=== PATIENT | male | born 1990 | race African-American/Black ===

== ENCOUNTER 2020-04-23 08:21 | Outpatient (REF) | payer OTHER, SELFPAY ==
--- NOTE | 2020-04-23 08:35 | XR_ITS ---
EXAMINATION: XR LUMBOSACRAL SPINE CLINICAL INFORMATION: Low back pain COMPARISON: None TECHNIQUE: Three views of the lumbosacral spine. FINDINGS: The vertebral bodies and posterior elements are normal. The disc spaces are preserved and the vertebral alignment is normal. The paraspinal soft tissues are normal. XR/XR lumbar spine 2-3V IMPRESSION: Unremarkable examination.
== END 2020-04-23 08:22 | disposition home or self-care (01) ==
LOC: HO.HMGCX 08:21
PROVIDERS: PCP Nurse Practitioner Family; Visit Provider Nurse Practitioner Family
DX: M54.5 Low back pain (principal)
CPT/HCPCS: 72100

== ENCOUNTER 2020-08-17 11:00 | Outpatient (RCR) | payer OTHER, SELFPAY ==
--- NOTE | 2020-05-26 12:12 | MHC.PT.EP ---
[facility] [place] Office [place] Office [place] Office [address] Yu Clemons [address] [phone] F: [phone] F: [phone] F: [phone] F: [phone] Physical Therapy Plan of Care Date of Evaluation: 05/26/20 Date of Surgery: Diagnosis: This is a 29 yo male presenting to skilled PT with a script for low back pain. Assessment: This is a 29 yo male presenting to skilled PT with a script for low back pain. Patient reporting back pain for over a few years now, most likely due to work per his report. He had injections about 2 years ago that did not help much. He has had PT in the past with little relief (his last PT session was over a year and a half ago). 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 He is also worried about his physical training test but unsure when that will be due to covid. Pain is located throughout the lower back (starts in the middle but works its way laterally at times). He describes this as achy and if he pushes himself it can be sharp. He also reports that he has random numbness or tingling in the toes on occasion. Assessment reveals pain that ranges up at a 7/10 at the worst but consistently has pain of about a 5/10. He demos + tests for ? lumbar derangement, SIJ involvement. He also demos poor posturing with posterior pelvic tilt, impaired hamstring length, decreased lumbar and sacral joint mobility as well as tenderness to palpation throughout R PSIS and lumbar spine. He is weak throughout his core, back extensors and hips. He also demos decreased hip, lumbar ROM. He is a good candidate for skilled PT 2x/wk for 6wks in order to work on the above impairments. He is a good candidate for skilled PT based on age, functional limitations and general PMHx. Frequency and Duration: The patient will be seen 2x/wk 6wk Short Term Goals: I in HEP Pain will remain centralized Will have no pain with SIJ reassessment and improved mobility in lumbar joints. Long-Term Goals: Patient will demo improved hamstring length B without pain Patient will demo proper lifting and squatting techniques without pain or cuing Oswestry to improve by at least 8 points MMT to improve at to least 4+/5 Treatment Plan: Modalities to reduce pain, spasms and effusion. Manual therapy to restore motion and function. Therapeutic exercise to improve strength and flexibility. Neuromuscular re-education for posture and balance. Therapeutic activities to return to functional activities of daily living. Electronically signed by: Griselda Clayton PT Please sign and return to therapist. Thank you for your referral.
--- NOTE | 2020-08-19 16:28 | MHC.PT.OD ---
[facility] [place] Office [place] Office [place] Office [address] Yu Clemons [address] [phone] F: [phone] F: [phone] F: [phone] F: [phone] Physical Therapy Daily Note Diagnosis: This is a 29 yo male presenting to skilled PT with a script for low back pain. Date of Surgery: Date of Evaluation: 05/26/20 Date of Treatment: 08/17/20 Treatments to Date: 14 Cancellations to Date: 0 No Shows to Date: 0 Authorized Visits: 15 Insurance End Date: Precautions/ Contraindications:Denies new falls, accidents or significant PMHx Subjective: Pt reported passing his L/S pain increased after his physical test. Pt stated it was a burning pain Pain Score and Location: 5 L/S L>R Objective Flowsheet: Tests & Measures L>R sulci shallow Equal leg length Exercises TM 2.9- 4.5 MPH JOG x 10 mins. Bridge x 10 reps, HS, psoas, lat 2 reps, hip abd, ext blb x 2 min. bridge with ball x 10 reps, SLR/sh flex TAC x 20 reps, LTR x 2 mins, PT x 2 mins, clams x 2 mins blb, gofer x 2 mins SIDEPLANKS x 5 R/ 5 MIN EACH; BIRD DOGS W RED TB x 30R EACH; LAT BAND WALKS W GRN TB ON THIGHS x 15R Self SNAG belt L/S ext, sacrum mobs into nutation x 3 reps, L rot sacrum x 2 reps, L 2,3,4, grade 11 mobs, PVM's L/S STM MH with stretches, reviewed supine to sit transfer and sit with L/S support. Pt completed Oswestry Modalities Stim LX with prone 9.5 V Assessment: Pt HAS PROGRESSED IN PT, CURRENTLY ADDRESSING HIS LBP- SONI HAS A THOROUGH HEP ADDRESSING FLEXIBILITY, STRENGTH, STABILITY, AND BODY MECHANICS AWARENESS. HE HAS SOME RESIDUAL CORE/PROX LEs WEAKNESS -WHIC, WITH HEP COMPLIANCY SHOULD CONTINUE TO LESSEN. Pt HAS WFL TRUNK AROM - HIS SUBJECTIVE PAIN HAS DECREASED- HE DOES HAVE SOME LB SORENESS AFTER PHYSICALLY DEMANDING TASKS OR PROLONGED POSITIONING AT WORK, WHICH WE HAVE DISCUSSED SELF-SX MGMT STRATEGIES FOR. PT Plan: DC with HEP Short Term Goals: I in HEP Pain will remain centralized Will have no pain with SIJ reassessment and improved mobility in lumbar joints. Usp Goals: Patient will demo improved hamstring length B without pain Patient will demo proper lifting and squatting techniques without pain or cuing Oswestry to improve by at least 8 points MMT to improve at to least 4+/5 Electronically signed by: Shana Hook,PT
== END 2020-08-19 16:15 | disposition other institution (70) ==
LOC: HO.PTCHIC 11:00
PROVIDERS: PCP Nurse Practitioner Family; Visit Provider Nurse Practitioner Family
DX: M54.5 Low back pain (principal)
CPT/HCPCS: 97014; 97110; 97112; 97140; 97161

== ENCOUNTER 2020-10-07 09:07 | Outpatient (REF) | payer OTHER, SELFPAY ==
[2020-10-07 12:05] LABS: Alanine Aminotransferase 34 U/L (0-40); Albumin Level 4.3 g/dL (3.5-5.0); Alkaline Phosphatase 105 U/L (39-117); Anion Gap 15 (12-20); Aspartate Amino Transferase 32 U/L (5-37); Bilirubin Total 1.6 mg/dL (0.0-1.0); Blood Urea Nitrogen 11 mg/dL (9-16); Calcium 9.2 mg/dL (8.4-10.2); Carbon Dioxide 26 mmol/L (22-29); Chloride 106 mmol/L (96-108); Cholesterol 155 mg/dL; Estimated Glomerular Filt Rate > 60; Glucose Fasting 80 mg/dL (60-99); HDL Cholesterol 40 mg/dL; LDL Cholesterol Calculated 95 mg/dl; Potassium 4.4 mmol/L (3.3-5.1); Sodium 143 mmol/L (135-145); Total Protein 7.4 g/dL (6.5-8.0); Triglycerides 101 mg/dL
[2020-10-07 12:14] LABS: TSH reflex Free T4 0.41 uIU/mL (0.32-4.0)
== END 2020-10-07 09:08 | disposition home or self-care (01) ==
LOC: HO.HMGCLDS 09:07
PROVIDERS: PCP Nurse Practitioner Family; Visit Provider Nurse Practitioner Family
DX: Z00.00 Encounter for general adult medical examination without abnormal findings (principal)
CPT/HCPCS: 36415; 80053; 80061; 84443

== ENCOUNTER 2020-10-20 10:28 | Outpatient (REF) | payer OTHER, SELFPAY ==
[2020-10-20 11:56] LABS: D Dimer < 200 NG/ML
== END 2020-10-20 10:29 | disposition home or self-care (01) ==
LOC: HO.LAB 10:28
PROVIDERS: Absent Provider Nurse Practitioner Family; PCP Nurse Practitioner Family; Visit Provider Nurse Practitioner Family
DX: M79.662 Pain in left lower leg (principal)
CPT/HCPCS: 36415; 85379

== ENCOUNTER → 2020-11-04 09:58 | Outpatient (BNVA) | payer OTHER, SELFPAY | PROVIDERS: PCP Nurse Practitioner Family; Visit Provider Physician Assistant | DX: S86.112A Strain of other muscle(s) and tendon(s) of posterior muscle group at lower leg level, left leg, initial encounter (principal) | CPT/HCPCS: 99202 ==

== ENCOUNTER → 2020-12-02 09:34 | Outpatient (BNVA) | payer OTHER, SELFPAY | PROVIDERS: Visit Provider Physician Assistant | DX: S86.112A Strain of other muscle(s) and tendon(s) of posterior muscle group at lower leg level, left leg, initial encounter (principal) | CPT/HCPCS: 99212 ==

== ENCOUNTER → 2020-12-30 10:03 | Outpatient (BNVA) | payer OTHER, SELFPAY | PROVIDERS: Visit Provider Physician Assistant | DX: S86.112D Strain of other muscle(s) and tendon(s) of posterior muscle group at lower leg level, left leg, subsequent encounter (principal) | CPT/HCPCS: 99212 ==

== ENCOUNTER 2021-02-09 14:00 | Outpatient (RCR) | payer OTHER, SELFPAY ==
--- NOTE | 2020-11-30 08:49 | MHC.PT.EP ---
[facility] [place] Office [place] Office [place] Office [address] Yu Clemons [address] [phone] F: [phone] F: [phone] F: [phone] F: [phone] Physical Therapy Plan of Care Date of Evaluation: Date of Surgery: Diagnosis: This is a Assessment: Patient is a 30 yo male presenting to skilled PT with a script for strain of posterior muscle of L leg. Patient with sharp onset of sharp pain while running without noted injury or misstep. He reports no popping sensation or bruising at onset of injury but did have swelling. At this point pain has improved some but remains about a 5/10 with walking and patient is unable to walk without boot or bear much weight through limb without boot. He also reports lateral 3 digit numbness and tingling that is new since the injury. He has not been doing exercises, has not been icing. Pain continues to be described as sharp and is located medial and around the mid aspect of lower leg. He now also have pain at the Achilles and arch of his foot most likely from impaired gait pattern and boot limiting ROM. Examination demos decreased ankle ROM and strength, tenderness along anterior tib, medial gastroc muscle belly, Achilles and arch, impaired ankle, toe and foot joint mobility due to pain and stiffness, and decreased muscle activation and loss of muscle girth of L gastroc. He would benefit from PT 2x/wk for 4wks to address impairments, implement HEP, improve pain and optimize functional mobility/return to work in full. Frequency and Duration: The patient will be seen 2x/wk for 6wks Short Term Goals: Please see eval Custodial Goals: Please see eval Treatment Plan: Modalities to reduce pain, spasms and effusion. Manual therapy to restore motion and function. Therapeutic exercise to improve strength and flexibility. Neuromuscular re-education for posture and balance. Therapeutic activities to return to functional activities of daily living. Electronically signed by: Griselda Clayton PT Please sign and return to therapist. Thank you for your referral.
--- NOTE | 2021-02-09 15:51 | MHC.PT.DC ---
[facility] [place] Office [place] Office [place] Office [address] [phone] F: [phone] F: [phone] F: [phone] F: [phone] Physical Therapy Discharge Report Diagnosis: 30 yo male presenting to skilled PT with a script for strain of posterior muscle of L leg Date of Surgery: Date of Evaluation: 11/29/20 Date of Discharge: 02/09/21 Treatments to Date: 15 Cancellations to Date: 0 No Shows to Date: 0 Discharge Status: Improved Function Independent with HEP Discharge Summary: Patient reporting ready for DC Pain has improved and is no more than a 2/10. ROM demos WFL except DF in which he is still limited in. I educated him on importance of HEP. He was also educated on weaning into running safely and following up with MD as needed. Electronically signed by: Griselda Clayton PT Please sign and return to therapist. Thank you for your referral.
== END 2021-02-09 15:51 | disposition home or self-care (01) ==
LOC: HO.PTCHIC 14:00
PROVIDERS: PCP Nurse Practitioner Family; Visit Provider Physician Assistant
DX: S86.112A Strain of other muscle(s) and tendon(s) of posterior muscle group at lower leg level, left leg, initial encounter (principal)
CPT/HCPCS: 97033; 97035; 97110; 97116; 97140; 97161

== ENCOUNTER → 2021-02-24 09:44 | Outpatient (BNVA) | payer OTHER, SELFPAY | PROVIDERS: Visit Provider Physician Assistant | DX: S86.112D Strain of other muscle(s) and tendon(s) of posterior muscle group at lower leg level, left leg, subsequent encounter (principal) | CPT/HCPCS: 99212 ==

== ENCOUNTER 2021-04-06 18:05 | Outpatient (REF) | payer OTHER, SELFPAY ==
--- NOTE | ~2021-04-06 | MR_ITS ---
EXAMINATION: MR ANKLE WITHOUT CONTRAST, LEFT CLINICAL INFORMATION: Left ankle pain. Strain of muscle and tendon. COMPARISON: None TECHNIQUE: Multisequence MR imaging of the left ankle was obtained without contrast on a high-field strength scanner. FINDINGS: BONE AND ARTICULAR CARTILAGE: No abnormal marrow signal. No stress reaction or fracture. Intact articular cartilage. No talar osteochondral lesion. ACHILLES TENDON: Normal. OTHER TENDONS: The visualized flexor and extensor tendons are intact. No edema within the visualized muscle bellies. LIGAMENTS: Intact. JOINT FLUID AND SOFT TISSUES: No joint effusion. Subcutaneous soft tissues are normal. PLANTAR FASCIA: Normal. SINUS TARSI AND TARSAL TUNNEL: Normal. MR/MR ankle LT wo con IMPRESSION: No evidence of acute injury. The visualized muscles and tendons are intact.
== END 2021-04-06 18:06 | disposition home or self-care (01) ==
LOC: HO.MRI 18:05
PROVIDERS: Visit Provider Physician Assistant
DX: S86.112A Strain of other muscle(s) and tendon(s) of posterior muscle group at lower leg level, left leg, initial encounter (principal); X58.XXXA Exposure to other specified factors, initial encounter; Y93.9 Activity, unspecified; Y92.9 Unspecified place or not applicable; Y99.9 Unspecified external cause status
CPT/HCPCS: 73721

== ENCOUNTER 2021-06-01 10:00 | Outpatient (RCR) | payer OTHER, SELFPAY ==
--- NOTE | 2021-03-16 16:38 | MHC.PT.EP ---
[facility] [place] Office [place] Office [place] Office [address] Yu Clemons [address] [phone] F: [phone] F: [phone] F: [phone] F: [phone] Physical Therapy Plan of Care Date of Evaluation: Date of Surgery: Diagnosis: Strain of gastrocnemius of L leg. 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 Pt is deemed an appropriate candidate to receive skilled PT in order to address his physical limitations to improve his functional ability. Frequency and Duration: The patient will be seen 2 x / wk x 6 wks. Short Term Goals: Initiate HEP. Improve L ankle DF ROM to > 15 degrees; initial. improve baseline pain with activity to < 3/10; initial 6/10. Pt will begin return to running program [facility] Goals: I with HEP. Pt will be able to run on TM x 10 min with managed Sx. Pt will lift a box from the floor w/o compensated mechanics. Treatment Plan: Modalities to reduce pain, spasms and effusion. Manual therapy to restore motion and function. Therapeutic exercise to improve strength and flexibility. Neuromuscular re-education for posture and balance. Therapeutic activities to return to functional activities of daily living. Electronically signed by: Sami Wright PT. Please sign and return to therapist. Thank you for your referral.
--- NOTE | 2021-06-01 13:07 | MHC.PT.DC ---
[facility] [place] Office [place] Office [place] Office [address] Yu Clemons [address] [phone] F: [phone] F: [phone] F: [phone] F: [phone] Physical Therapy Discharge Report Diagnosis: Strain of gastrocnemius of L leg. Date of Surgery: Date of Evaluation: 03/16/21 Date of Discharge: 06/01/21 Treatments to Date: 12 Cancellations to Date: No Shows to Date: Discharge Status: Improved Function Independent with HEP Recommend MD Follow-up Discharge Summary: Huber has been an active participant in his therapy in and out of the clinic. He has met many of his goals and has initiated return to jogging though he persists with lingering ankle soreness and pain with jogging > 3-5 minutes at present and not recommended to perform long duration running/ jogging at this time. He is I with his home program and is in agreement with DC. Electronically signed by: Sami Wright PT. Please sign and return to therapist. Thank you for your referral.
== END 2021-06-01 13:09 | disposition home or self-care (01) ==
LOC: HO.PTCHIC 10:00
PROVIDERS: PCP Nurse Practitioner Family; Visit Provider Physician Assistant
DX: S86.112D Strain of other muscle(s) and tendon(s) of posterior muscle group at lower leg level, left leg, subsequent encounter (principal)
CPT/HCPCS: 97110; 97116; 97140; 97161; 97530

== ENCOUNTER 2021-07-26 08:25 | Outpatient (REF) | payer OTHER, SELFPAY ==
--- NOTE | ~2021-07-26 | XR_ITS ---
EXAMINATION: RIGHT FOOT AND RIGHT ANKLE CLINICAL INFORMATION: Pain in right ankle and right foot. COMPARISON: None TECHNIQUE: 3 views right foot and 2 views right ankle. FINDINGS: RIGHT ANKLE: There is no visible acute fracture, dislocation or subluxation seen. The soft tissues are normal. The ankle mortise and subtalar joints are normal. RIGHT FOOT: There is no visible acute fracture, dislocation or subluxation. The metatarsophalangeal, interphalangeal and intertarsal joint spaces are maintained normal. The soft tissues are normal. XR/XR foot RT min 3V IMPRESSION: Unremarkable right ankle exam. Unremarkable right foot exam.
--- NOTE | ~2021-07-26 | XR_ITS ---
EXAMINATION: RIGHT FOOT AND RIGHT ANKLE CLINICAL INFORMATION: Pain in right ankle and right foot. COMPARISON: None TECHNIQUE: 3 views right foot and 2 views right ankle. FINDINGS: RIGHT ANKLE: There is no visible acute fracture, dislocation or subluxation seen. The soft tissues are normal. The ankle mortise and subtalar joints are normal. RIGHT FOOT: There is no visible acute fracture, dislocation or subluxation. The metatarsophalangeal, interphalangeal and intertarsal joint spaces are maintained normal. The soft tissues are normal. XR/XR ankle RT min 3V IMPRESSION: Unremarkable right ankle exam. Unremarkable right foot exam.
== END 2021-07-26 08:26 | disposition home or self-care (01) ==
LOC: HO.HMGCX 08:25
PROVIDERS: PCP Nurse Practitioner Family; Visit Provider Internal Medicine
DX: M25.571 Pain in right ankle and joints of right foot (principal)
CPT/HCPCS: 73610; 73630

== ENCOUNTER → 2022-02-24 09:48 | Outpatient (BNVA) | payer OTHER, SELFPAY | PROVIDERS: PCP Nurse Practitioner Family; Visit Provider Nurse Practitioner Family | DX: R06.83 Snoring (principal); R40.0 Somnolence; R06.81 Apnea, not elsewhere classified | CPT/HCPCS: 99202 ==

== ENCOUNTER 2023-03-13 07:49 | Outpatient (AMB) | payer OTHER, SELFPAY ==
[2023-03-13 07:59] VITALS: BP 114/70; PULSE 86; O2SAT 99; BMI 25.9
--- NOTE | 2023-03-13 07:59 | MHC.PC.OV ---
Vital Signs 03/13/23 07:59 Height 5 ft 7 in Weight 165 lb 4 oz BMI 25.9 BP 114/70 Blood Pressure Location Rt brachial Position Sitting Pulse 86 Pulse Source Pulse Oximeter Pulse Oximetry (%) 99 Oxygen Delivery Method Room Air Intake Visit Reasons: PE Allergies G6PD deficiency Allergy (Unknown, Uncoded 03/13/23 08:01) unknown Tobacco use date assessed: 03/13/23 Dental Screening Dental Screen Date: 03/13/23 Did you have a dental visit in the last 12 months?: Yes Did you have a dental problem in the last 6 months where you did not have access to dental care?: No Was dental information given to patient?: Patient has dentist HPI PE HPI Details Pt is here for a PE. Will order labs. [facility] Medical History Moderate major depression Patellofemoral arthralgia of both knees Scoliosis Surgical History No pertinent past surgical history Family History Father No problems noted. Mother No problems noted. Social History Housing: House Alcohol intake: current Alcohol intake frequency: a few times a month Alcohol type: hard liquor Patient Tobacco Use Status: Never used Tobacco e-Cigarette/Vaping Use: Never Used Second Hand Smoke Exposure: Yes service: Yes Current occupational status: employed Current occupation: active duty / rt handed Cognitive needs: No Hearing needs: No Vision needs: No Questionnaire AUDIT C Alcohol Use Questionnaire (AUDIT-C) 1. How often do you have a drink containing alcohol?: Monthly or less 2. How many drinks containing alcohol do you have on a typical day when you are drinking?: 1 or 2 3. How often do you have six or more drinks on one occasion?: Never Total Score: 1 Review of Systems Const Denies chills and Denies fever(s) Eyes Denies blurry vision ENT Denies vertigo, Denies dizziness and Denies sore throat Card Denies chest pain at rest, Denies chest pain with activity, Denies diaphoresis, Denies dyspnea and Denies dyspnea on exertion Resp Denies cough, Denies dyspnea, Denies dyspnea on exertion and Denies wheezing GI Denies abdominal pain, Denies melena, Denies hematochezia, Denies constipation, Denies diarrhea and Denies loose stools Denies hematuria Musc Denies numbness and Denies tingling Skin/Breast Denies lesions Neuro Denies vertigo, Denies dizziness, Denies numbness and Denies tingling Psych Denies anxiety, Denies depression, Denies homicidal ideation, Denies suicidal ideation and Denies other (substance abuse) Aller/Immun Denies wheezing Physical exam (Primary Care) Vital Signs: Last Vital Signs Pulse 86 03/13/23 07:59 BP 114/70 03/13/23 07:59 Pulse Ox 99 03/13/23 07:59 Oxygen Delivery Method Room Air 03/13/23 07:59 BMI result Body Mass Index 25.9 Tobacco/Smoking Status: Tobacco use Status Tobacco use date assessed 03/13/23 03/13/23 08:06 Patient Tobacco Use Status Never used Tobacco 03/13/23 08:06 e-Cigarette/Vaping Use Never Used 03/13/23 08:06 Const General: cooperative Nutritional Appearance: well nourished Orientation/consciousness: patient oriented x3 HENMT Head: Yes normal to inspection, Yes normocephalic and Yes atraumatic Ears: TM's normal bilaterally Eyes General: appearance normal, both eyes and all related structures Alignment and Position: alignment normal and position normal Neck Neck: Yes normal visual inspection and Yes no lymphadenopathy Thyroid: Thyroid normal Resp Effort & Inspection: normal respiratory effort Auscultation: clear to auscultation bilaterally Cardio Rate: regular rate Rhythm: regular rhythm Heart sounds: S1 normal heart sound present, S2 normal heart sound present and no murmurs GI Palpation (GI): Soft to palpation and nontender Auscultation: normal bowel sounds Male General Exam: Yes normal external exam Penis: normal penis Scrotum: scrotum normal, testes descended bilaterally and no inguinal hernias Testes: no testicular mass Skin Rashes: no rashes Neuro General: patient oriented x3, moves all extremities, no focal motor deficits and deep tendon reflexes 2+ bilaterally Romberg Test: Negative Psych Appearance: grossly normal Mental Status: mental status grossly normal Speech and movement: Normal speech and movement present Affect: normal affect Attitude: cooperative Thought process: Normal thought process present Thought content: Normal thought content present Insight: Good insight present (Psych) Judgement: Good judgement present (Psych) Assessment and Plan Assessment & Plan (1) Physical exam: Code(s): Z00.00 - Encounter for general adult medical examination without abnormal findings Plan: Labs ordered Plan The patient agreed to the use of a medical lab technician for this encounter. Scribed for CHELI Leon-TOM by Brooke Maharaj medical lab technician, on 03/13/2023 at 08:15 EST Orders: Orders Comprehensive [place]. Panel Fast Today Z00.00 - Encounter for general adult medical examination without abnormal findings TSH reflex Free T4 Today Z00.00 - Encounter for general adult medical examination without abnormal findings Complete Blood Count Auto Diff Today Z00.00 - Encounter for general adult medical examination without abnormal findings UA CC w/rflx Micro + Cult Today Z00.00 - Encounter for general adult medical examination without abnormal findings Lipid Panel Today Z00.00 - Encounter for general adult medical examination without abnormal findings Coding Level of Care Code Est Pt Prev Care 18-39y(99308) Diagnoses Physical exam Z00.00
== END 2023-03-13 08:18 | disposition home or self-care (01) ==
PROVIDERS: PCP Nurse Practitioner Family; Visit Provider Nurse Practitioner Family
DX: Z00.00 Encounter for general adult medical examination without abnormal findings (principal)
CPT/HCPCS: 99395